=== PATIENT | female | born 1960 | race Caucasian/White ===

== ENCOUNTER 2019-02-13 08:03 | Day surgery (SDC) | payer OTHER ==
[~2019-02-13 08:03] MED LIST: ALEVE220 M1 PO; CEFADROXIL500 MG PO; PERCOCET 5/3251 TAB PO
== END 2019-02-13 12:00 | disposition home or self-care (01) ==
LOC: AMB-ENDOS 08:03
DX: K63.5 Polyp of colon (principal); Z12.11 Encounter for screening for malignant neoplasm of colon